=== PATIENT | male | born 1985 | race Caucasian/White ===

== ENCOUNTER 2016-12-03 15:03 | Emergency (ER) | payer OTHER ==
[2016-12-03 15:07] VITALS: BP 120/78; PULSE 80; RESP 20; O2SAT 98
--- NOTE | 2016-12-03 15:31 | ED.REPORT ---
HPI-Extremity Problem Upper Date of Service Dec 03, 2016 ED Provider: Thierry Myles DO Pt is a 31 year old male presenting to the ED complaining of left shoulder pain onset just prior to arrival due to being bucked off a horse. He denies other injury, neck pain, change in LOC, hitting his head or back pain. He is able to move his fingers. Nursing Notes Stated Complaint: LEFT SHOULDER INJURY Chief Complaint: Multiple Trauma/Fall Nursing Notes Reviewed: Yes Allergies: Coded Allergies: No Known Allergies (Unverified , 12/03/16) Scheduled PRN Naproxen (Naproxen) 500 Mg Tab 500 MG PO BID PRN PRN For Pain Oxycodone (Roxicodone) 5 Mg Tablet 5-10 MG PO QID PRN PRN For Pain General Time Seen by MD: 15:30 Chief Complaint Shoulder injury left Hx Obtained From: Patient Arrived By: Walk-in Onset Occurred: Just prior to arrival Symptom Duration: Since onset Caused by: Accidental Context: Occurred at: Sports injury Location: : Shoulder left Quality: Painful Severity: Current: Severe Severity: Maximum: Severe Associated with: Denies: Loss of consciousness, Neck pain, Numb extremities, Unable to move joint Recent Healthcare: No recent doctor visit, No recent hospitalization Similar Sx Previous: No Past Medical History Past Medical History denies Past Surgical History denies Smoking History Current Every Day Smoker Social History Alcohol Use: "Social" Ambulatory Status Independent Review of Systems Musculoskeletal: Reports: Joint pain, Joint swelling, Denies: Back pain Neurologic: Denies: Change LOC, Headache, Numbness Complete sys rev & neg: except as marked. Physical Exam Physical Exam Notes: C, T, and L spines non tender to palpation Initial Vital Signs Vital Signs (First) Date Time Temp Pulse Resp B/P Pulse Ox O2 Delivery O2 Flow Rate FiO2 12/03/16 15:07 36.4 80 20 120/78 98 Room Air Initial VS: Reviewed General/Constitutional: Well-developed, Well-nourished Head / Eyes: Atraumatic, Normocephalic, PERRL ENT: Mucous membranes moist, Conjunctiva normal, No scleral icterus Neck: Supple, Non-tender, Full range of motion Respiratory: Breath sounds normal, Clear to auscultation, No respiratory distress Cardiovascular: Regular rate & rhythm, Heart sounds normal, Intact distal pulses Abdomen / GI: Soft, Non-tender, No guarding, No rebound, No distention Skin: Warm, Dry, No cyanosis Neurologic: Alert, Oriented, Nonfocal Psychiatric: Mood/affect normal, Behavior normal, Normal thought content Upper Extremity / MS: Neurologic intact, Vascular intact Clavicle / Shoulder Girdle: Positive: AC joint swollen L, AC lig tender L Interpretation & Diagnostics X-Ray Interpretation Xray Interpretation: IMPRESSION: Acromioclavicular separation. Concordant with preliminary interpretation. Dictated by: Alena Phoenix M.D. on 12/03/2016 at 16:04 X-Ray Ordered: Shoulder left Interpretation / Wet Read by: Interpret - Radiologist Re-Eval/Medical Decision Med Decision/Clinical Course Isolated shoulder injury, patient has a likely high-grade before meals separation is placed in a shoulder sling and will follow up with orthopedics. Naproxen and oxycodone prescribed. No other injuries can be identified. Given the limited nature of the diagnostic evaluation the ER, extensive return and follow-up precautions are given. Re-Evaluation/Progress : Time of Eval: 16:46 Patient Status: Condition improved Re-Evaluation/Progress Note: Discussed plan for discharge. Pt understands and agrees with plan. Counseled Regarding: Diagnosis, Lab results, Need for follow-up, When/why to return to ED Discharge & Departure Impression: Primary Impression: Acromioclavicular joint separation Encounter type: initial encounter Laterality: left Qualified Code: S43.102A - Unspecified dislocation of left acromioclavicular joint, initial encounter Disposition: Home Discharge Condition All VS Reviewed: Yes Condition: Improved Patient Instructions: Acromioclavicular Separation (ED) Additional Instructions: Follow up with the orthopedic surgeon in the next week. Wear the shoulder sling at all times. Use naproxen and oxycodone for pain. Return to the ER with any persistent fever, lethargy, vomiting, or other concerning symptoms. Referrals: Robin Padgett MD Attestation Portions of this note were transcribed by Ivy Rowell. I, Dr. Myles personally performed the history, physical exam and medical decision-making; I reviewed and confirmed the accuracy of the information in the transcribed note. Signed by: Rowan See, 12/03/2016 at 1753. copies to: Robin Padgett MD, Timothy S DO Dec 03, 2016 15:31 IVY ROWELL Dec 03, 2016 15:42
[2016-12-03] MEDS ORDERED: Ondansetron 2 mg/mL 2 mL Inj IVPUSH PRN (15:40)
[2016-12-03] MEDS ORDERED: HYDROmorphone 1 mg/mL Inj IVPUSH ONE (15:40)
--- NOTE | 2016-12-03 16:06 | DRSVH ---
PROCEDURE: X-RAY LEFT SHOULDER, MINIMUM TWO VIEWS ([id number]) INDICATIONS: trauma, bucked off horse TECHNIQUE: 2 views of the shoulder were acquired. COMPARISON: None. FINDINGS: Bones: No fractures. The acromioclavicular interval is widened at 10 mm. No suspicious bony lesions. Visualized ribs appear intact. Soft tissues: No suspicious soft tissue calcifications. IMPRESSION: Acromioclavicular separation. Concordant with preliminary interpretation. Dictated by: Alena Phoenix M.D. on 12/03/2016 at 16:04 Approved by: Alena Phoenix M.D. on 12/03/2016 at 16:05
[2016-12-03] MEDS ORDERED: OXYC-474 PO (16:51)
[2016-12-03] MEDS ORDERED: NPR500T PO (16:51)
[2016-12-03 17:04] VITALS: BP 123/75; RESP 18; O2SAT 95
== END 2016-12-03 17:05 | disposition home or self-care (01) ==
LOC: SED 15:03
DX: S43.102A Unspecified dislocation of left acromioclavicular joint, initial encounter (principal); V80.010A Animal-rider injured by fall from or being thrown from horse in noncollision accident, initial encounter; Y93.52 Activity, horseback riding; Y92.89 Other specified places as the place of occurrence of the external cause; Y99.8 Other external cause status; F17.200 Nicotine dependence, unspecified, uncomplicated
CPT/HCPCS: 73030; 96374; 96375; 99284; J1170; J2405